=== PATIENT | male | born 1940 | race Caucasian/White ===

== ENCOUNTER 2022-12-31 16:24 | Inpatient (IN) | payer MEDICARE, SELFPAY ==
[2022-12-31] VITALS (7 sets, daily range): BP systolic 120–185; BP diastolic 51–89; PULSE 55–70; RESP 16–20; TEMP 36.3–36.5; O2SAT 97–99; BMI 25.5
--- NOTE | ~2022-12-31 | XR_ITS ---
EXAMINATION: XR tibia fibula RT 2V INDICATION: Right lower limb one and pain TECHNIQUE: Two views of the right tibia and fibula are obtained on three radiographs. COMPARISON: None available FINDINGS: There is distal soft tissue swelling of the leg and ankle. No definite soft tissue gas is i dentified. There is an old healed fracture of the distal fibula. No acute fracture is identified. The re is moderate osteoarthritis of the knee. Calcified atherosclerosis is noted. There is a plantar brittny caneal enthesophyte. IMPRESSION: 1. Soft tissue swelling of the distal leg and ankle without acute osseous abnormality. Reviewed, dictated and finalized at location F. IMPRESSION: 1. Soft tissue swelling of the distal leg and ankle without acute osseous abnor mality.
--- NOTE | ~2022-12-31 | US_ITS ---
EXAMINATION: US biopsy lymph node DATE: 01/02/2023 14:17 INDICATION: Right axillary lymphadenopathy. TECHNIQUE: The procedure including the risks, benefits, and alternatives was discussed with the patie nt. Risks discussed included bleeding and infection. The patient understood the risks and agreed to p roceed. The skin overlying the right axilla was prepped and draped in usual sterile fashion. Anesthe tic was administered with 1% lidocaine subcutaneously. An 18 gauge core biopsy needle was then used to obtain 6 core biopsy specimens under continuous sonographic guidance. The entry site was cleaned a nd dressed. There were no immediate complications. FINDINGS: Ultrasound images demonstrate the needle in a 10 cm mass in right axilla. IMPRESSION: 1. Ultrasound-guided core needle biopsy of a mass in right axilla. Reviewed, dictated and finalized at location A.
--- NOTE | ~2022-12-31 | US_ITS ---
EXAMINATION: US venous doppler UE RT DATE: 01/01/2023 08:38 INDICATION: Right upper extremity edema. TECHNIQUE: Pollard scale images with and without compression and Doppler images of the right upper extre mity veins were obtained. COMPARISON: CT dated 12/31/2022. FINDINGS: The right internal jugular vein, subclavian vein, axillary vein, brachial veins, basilic vein, cephal ic vein, radial vein, and ulnar vein are patent. There are several pathologic-appearing lymph nodes o f the right supraclavicular and axillary locations. IMPRESSION: 1. Patent right upper extremity veins. No evidence of deep venous thrombosis. 2: Pathologic-appearing lymph nodes of the right axilla and supraclavicular locations, suspicious for metastatic disease versus lymphoma. Recommend biopsy. Reviewed, dictated and finalized at location A. IMPRESSION: 1. Patent right upper extremity veins. No evidence of deep venous thrombosis. 2: Pathologic-appearing lymph nodes of the right axilla and supraclavicular loc ations, suspicious for metastatic disease versus lymphoma. Recommend biopsy.
--- NOTE | ~2022-12-31 | CT_ITS ---
EXAMINATION: CT abdomen pelvis w con DATE: 01/05/2023 13:28 INDICATION: Metastatic melanoma. TECHNIQUE: Computed tomography (CT) of the abdomen and pelvis was performed with 100 mL Omnipaque 350 intravenous contrast. Automated exposure control and iterative reconstruction technique were employe d. The dose-length product was 879.51 mGy-cm. COMPARISON: Chest CT 12/31/2022 FINDINGS: The visualized portions of the lung bases demonstrate small right and moderate-sized left p leural effusions. There is mild atelectasis bilaterally. There is mild chronic interstitial lung dise ase on the right. Cardiomegaly is noted. There are coronary artery calcifications. There are changes of aortic valve replacement. No pericardial effusion. There are cysts in the liver measuring up to 10 mm. The gallbladder, spleen, pancreas, and adrenal glands are normal. There is cortical thinning of the kidneys. There is a 4 mm stone in right kidney. There are peripelvic cysts in left kidney. There is calcified atherosclerosis of the aorta and many of the other arteries. 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 The prostate is moderately enlarged. There is a right inguinal hernia c ontaining fat. There is diverticulosis of the colon without evidence of diverticulitis. There are no dilated loops of bowel. The appendix is normal. There are no pathologically enlarged lymph nodes. The re is no free intraperitoneal fluid. Body wall edema is noted. There is edema of the intra-abdominal fat. Partially visualized is an 11.0 cm mass in right axilla. There are multiple healing left rib fra ctures with callus formation. There are healing fractures of the left L1, L2, and L3 transverse proce sses. There is mild thoracic and lumbar spondylosis. IMPRESSION: 1. Right axillary lymphadenopathy, consistent metastatic disease. 2. Small right and moderate-sized left pleural effusions. 3. 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 Reviewed, dictated and finalized at location A.
--- NOTE | ~2022-12-31 | CT_ITS ---
EXAMINATION: CTA chest PE protocol DATE: 12/31/2022 19:10 INDICATION: Pulmonary edema, right axillary mass TECHNIQUE: Computed tomography angiography (CTA) of the chest was performed with 100 mL Omnipaque-350 intravenous contrast timed to evaluate the pulmonary arteries. Coronal maximum intensity projection 3D-reconstructions were created by the technologist. The dose-length product (DLP) was 475.50 mGy-cm. Automated exposure control and iterative reconstruction technique were employed. COMPARISON: None. FINDINGS: The pulmonary arteries are well-opacified. No pulmonary embolism is identified. Cardiomegal y is noted. There are moderate-sized left and small right pleural effusions. There are minimal airspa ce opacities of the lung bases and bilateral upper lobes. There is no pneumothorax. There are multipl e soft tissue masses of the right axilla. The largest measures 8.9 x 6.1 cm. There is right supraclav icular and posterior cervical lymphadenopathy. There are changes of aortic valve replacement and soni nary artery bypass grafting. There is moderate thoracic spondylosis. There is a 4 mm nonobstructing stone of the right kidney. IMPRESSION: 1. No pulmonary embolus identified. 2. Moderate-sized left and small right pleural effusions. 3. Patchy opacities of the lungs, consistent with atelectasis and pneumonia. 4. Multiple soft tissue masses of the right axilla and right supraclavicular posterior cervical lymph adenopathy, consistent with metastatic disease versus lymphoma. Ultrasound-guided biopsy is recommend ed. Reviewed, dictated and finalized at location F. IMPRESSION: 1. No pulmonary embolus identified. 2. Moderate-sized left and small right pleural effusions. 3. Patchy opacities of the lungs, consistent with atelectasis and pneumonia. 4. Multiple soft tissue masses of the right axilla and right supraclavicular po sterior cervical lymphadenopathy, consistent with metastatic disease versus lym phoma. Ultrasound-guided biopsy is recommended.
--- NOTE | ~2022-12-31 | CT_ITS ---
EXAMINATION: CT brain wo con DATE: 01/05/2023 13:28 INDICATION: Metastatic melanoma of the right axilla TECHNIQUE: Computed tomography (CT) of the head was performed without intravenous contrast. The dose- length product was 605.33 mGy-cm. Automated exposure control and iterative reconstruction technique w ere employed. COMPARISON: No prior studies for comparison. FINDINGS: There is a chronic left lacunar infarction of the left caudate and lentiform nuclei. Genera lized atrophy. There are scattered mild periventricular and subcortical white matter changes, most li shad related to small vessel ischemic disease (microangiopathy). No ventriculomegaly or midline shift . There is intracranial atherosclerosis. Basilar cisterns are patent. Small left mastoid effusion. Pa ranasal sinuses are pneumatized. No depressed skull fractures. IMPRESSION: 1. No acute intracranial abnormality. 2: Chronic left lacunar infarction. Reviewed, dictated and finalized at location L.
--- NOTE | ~2022-12-31 | US_ITS ---
EXAMINATION:US venous doppler LE BI INDICATION:Bilateral lower extremity edema. TECHNIQUE: Multiple grayscale, color flow and Doppler images of the right and left lower extremity de ep venous systems were obtained and reviewed. COMPARISON:No prior studies for comparison. FINDINGS: The common femoral, superficial femoral and popliteal veins demonstrate normal respiratory variation, augmentation and compressibility. Color flow is also seen within the posterior tibial, pe roneal, greater saphenous and profunda veins. IMPRESSION: 1: No lower extremity deep venous thrombosis. Reviewed, dictated and finalized at location A.
--- NOTE | ~2022-12-31 | XR_ITS ---
EXAMINATION: XR chest 2V DATE: 12/31/2022 17:41 INDICATION: Congestive heart failure, right axillary mass TECHNIQUE: AP and lateral views of the chest are obtained. COMPARISON: None available FINDINGS: Cardiomegaly is noted. There is a mild diffuse interstitial pattern. There is a small left pleural effusion. There are minimal airspace opacities of the lung bases, left greater than right. Me ginger sternotomy wires and mediastinal surgical clips are seen, consistent with cardiac valve replacem ent and likely prior coronary artery bypass grafting. There is moderate thoracic spondylosis. There a ppears to be fullness in the right axillary region corresponding with the provided clinical history. IMPRESSION: 1. Cardiomegaly with mild pulmonary edema. 2. Small left pleural effusion. 3. Bibasilar airspace opacities, consistent with atelectasis versus pneumonia. 4. Right axillary fullness, nonspecific but consistent with clinical examination. Reviewed, dictated and finalized at location F. IMPRESSION: 1. Cardiomegaly with mild pulmonary edema. 2. Small left pleural effusion. 3. Bibasilar airspace opacities, consistent with atelectasis versus pneumonia. 4. Right axillary fullness, nonspecific but consistent with clinical examinatio rahel
--- NOTE | 2022-12-31 16:50 | ECG_ITS ---
Measurements Intervals [place] Rate: 51 P: -9 MN: 250 QRS: -52 QRSD: 150 T: 132 QT: 468 QTc: 433 Interpretive Statements SINUS BRADYCARDIA WITH FIRST DEGREE AV BLOCK WITH OCCASIONAL SUPRAVENTRICULAR PREMATURE COMPLEXES MARKED LEFT AXIS DEVIATION [QRS AXIS < -30] INTRAVENTRICULAR CONDUCTION DELAY [130+ ms QRS DURATION] PROMINENT U wAVE PRESENT, CONSIDER HYPOKALEMIA. NO PREVIOUS ECG AVAILABLE FOR COMPARISON Electronically Signed On 01-01-2023 8:33:27 CDT by Marion Solorio M.D.
--- NOTE | 2022-12-31 16:59 | ED.EXTPRO ---
HPI - Extremity Problem General Chief complaint: Extremity Problem,Nontraumatic <JONATHAN Yee Last Filed: 01/01/23 02:57> Stated complaint: right arm swelling x4 wks <JONATHAN Yee Last Filed: 01/01/23 02:57> Time Seen by Provider: 12/31/22 16:55 <JONATHAN Yee Last Filed: 01/01/23 02:57> Source: patient <JONATHAN Yee Last Filed: 01/01/23 02:57> Mode of arrival: ambulatory <JONATHAN Yee Last Filed: 01/01/23 02:57> Limitations: no limitations and other (poor historian) <JONATHAN Yee Last Filed: 01/01/23 02:57> History of Present Illness HPI Narrative: Patient is an 82 y/o male who presents to the ED with c/o right upper extremity swelling. Patient is somewhat a poor historian. Patient reports having swelling to his right upper extremity and lower legs for the last 4 to 5 weeks. He states the swelling is improved in the morning and worsens throughout the day. He does have history of CHF. He is not sure if he is on any diuretic therapy. Per records, he takes Lasix 40mg daily. He denies any pain associated with the swelling. He does have a wound to his right lower leg which he states has been there for the last couple of days, unsure how it occurred. He also reports having a mass to his right lateral chest/axillary region which she noticed about 4 weeks ago. He states he has not tried to contact his doctor for this. He reports unintentional weight loss of 10 pounds in the last 2 weeks, decreased appetite, occasional dyspnea with exertion. He denies any chest pain, fevers, cough or cold symptoms, abdominal pain, nausea, vomiting. Denies known history of blood clots. He is not sure if he is on blood thinners. <JONATHAN Yee Last Filed: 01/01/23 02:57> Related Data Home medications: Home Medications Medication Instructions Recorded Confirmed amlodipine 10 mg tablet 10 mg PO DAILY 12/31/22 12/31/22 furosemide 40 mg tablet 40 mg PO DAILY 12/31/22 12/31/22 levothyroxine 175 mcg tablet 175 mcg PO DAILY 12/31/22 12/31/22 <Danielle Samayoa PA-C - Last Filed: 01/01/23 02:57> Allergies/Adverse reactions: Allergies Allergy/AdvReac Type Severity Reaction Status Date / Time No Known Allergies Allergy Verified 12/31/22 16:26 <Danielle Samayoa PA-C - Last Filed: 01/01/23 02:57> Review of Systems Review of Systems: CONSTITUTIONAL: See HPI. ENT: Denies rhinorrhea, congestion, sore throat. CARDIOVASCULAR: See HPI. RESPIRATORY: See HPI. GASTROINTESTINAL: Denies abdominal pain, nausea, vomiting. GENITOURINARY: Denies dysuria or hematuria. SKIN: Denies rash or itching. MUSCULOSKELETAL: Denies back pain, joint pain, or myalgia. NEUROLOGIC: Denies headache, numbness, or weakness. <Danielle Samayoa PA-C - Last Filed: 01/01/23 02:57> All systems reviewed & are unremarkable except as noted in HPI and below <Danielle Samayoa PA-C - Last Filed: 01/01/23 02:57> [facility] Past Medical History Medical History: Medical History (Updated 01/01/23 @ 02:57 by Danielle Samayoa PA-C) CHF (congestive heart failure) Essential hypertension Hypothyroidism <Danielle Samayoa PA-C - Last Filed: 01/01/23 02:57> Surgical History Surgical History: Surgical History (Updated 01/01/23 @ 05:07 by Shabnam Lord DO) History of radical excision of skin lesion (~2021) Right upper back Hx of CABG (~2011) Status post open reduction with internal fixation of fracture Left ankle surgery <Danielle Samayoa PA-C - Last Filed: 01/01/23 02:57> Family History Family History: Family History Father Heart disease Mother Myocardial infarction <Danielle Samayoa PA-C - Last Filed: 01/01/23 02:57> Social History Social History: Social History (Updated 01/01/23 @ 05:10 by Shabnam North
[2022-12-31 17:12] LABS: Basophils Percent Auto 0.3 % (0.2-1.2); Eosinophils Percent Auto 0.3 % (0-4.4); Hematocrit 42.8 % (42.0-52.0); Hemoglobin 14.3 g/dL (14.0-18.0); Immature Granulocyte Absolute 0.06 K/mm3 (0.00-0.031); Immature Granulocyte Percent A 0.6 % (0-0.5); Lymphocytes Absolute Auto 1.09 K/mm3 (0.9-3.2); Mean Corpuscular HGB Conc 33.4 g/dl (32-36); Mean Corpuscular Hemoglobin 30.6 pg (26-34); Mean Corpuscular Volume 91.6 fl (80-100); Mean Platelet Volume 10.4 fl (7.4-10.4); Monocytes Absolute Auto 0.8 K/mm3 (0.1-0.6); Monocytes Percent Auto 8.2 % (2.6-8.5); Neutrophils Absolute Auto 7.9 K/mm3 (1.3-6.7); Neutrophils Percent Auto 79.6 % (45.5-73.1); Platelet Count Result 187 k/mm3 (150-375); Red Blood Count 4.67 M/mm3 (4.6-6.20); Red Cell Distribution Width 15.2 % (11.5-14.5)
[2022-12-31 17:27] LABS: Prothrombin Time 13.6 Seconds (11.1-14.7)
[2022-12-31 17:28] LABS: Partial Thromboplastin Time 25.8 SECONDS (22.3-36.8)
[2022-12-31 17:36] LABS: NT Pro B Type Natriuretic Pept 23800 pg/mL (19.9-100)
[2022-12-31 17:49] LABS: Alanine Aminotransferase 15 U/L (6-50); Albumin Level 3.6 g/dL (3.5-5.1); Alkaline Phosphatase 83 U/L (38-126); Anion Gap 6 mmol/L (8-16); Aspartate Amino Transferase 26 U/L (17-59); Bilirubin,Total 0.8 mg/dL (0.2-1.3); Blood Urea Nitrogen 23 mg/dL (9-20); Calcium 7.9 mg/dL (8.4-10.2); Carbon Dioxide 30 mmol/L (22-30); Chloride 100 mmol/L (98-107); Estimated Glomerular Filt Rate 39; Glucose 108 mg/dL (65-110); Lipase 77 U/L (23-300); Potassium 2.6 mmol/L (3.4-5.0); Sodium 136 mmol/L (137-145); Troponin I 0.079 ng/mL (0.000-0.034)
[2022-12-31 18:04] LABS: D Dimer 2.71 ug/mL (<0.48)
[2022-12-31] MEDS: POTASSIUM CHLORIDE 20 MEQ ER TABLET 40 MEQ PO (18:42)
[2022-12-31] MEDS: POTASSIUM CHLORIDE INJ 40 MEQ in SODIUM CHLORIDE 0.9% IV 500 ML 130 MEQ IVPB (18:42)
[2022-12-31] MEDS: FUROSEMIDE INJ 40 MG/4 ML VIAL IV PUSH (18:49)
[2022-12-31 19:38] LABS: Magnesium 1.9 mg/dL (1.6-2.3)
--- NOTE | 2022-12-31 21:12 | PM.IMHP ---
H&P: HPI History of Present Illness Date/Time: 12/31/22 21:12 Chief Complaint: Right arm swelling Narrative: 82-year-old male with past medical history of CHF, hypothyroidism and essential hypertension who presented to the ER via private vehicle from home due to right upper extremity swelling. The patient who receives all of his medical care at [facility] in [facility] in [place] was brought by family to our facility for evaluation of a mass under the right arm and associated right arm swelling for about a month. The patient was only a fair to poor historian provides all the history as there is no prior medical records available for my review. The patient's family had already left before the patient was transferred out of the ER. The patient states that he he has noticed right upper extremity swelling for 3-4 weeks. There is no associated pain. He is able to use extremity without difficulty. However he has noticed some nontender swelling and had growth under his arm that is been there for at least a month if not a little bit more. He is not went to his primary care physician for evaluation of this. The symptoms have been accompanied by a 6-10 lb weight loss over the last 2 months. He has had significant decrease in appetite and states that food just does not taste good. Since he has not been eating as much she has had decreased bowel movements but denies sensation of constipation, abdominal pain, bloating, hematochezia or melena. Patient initially denied any known history of cancers or malignancies but on exam is noted to have a large scar across his mid back and right shoulder region. At the time my evaluation E stated that he had a melanoma resected last year at [facility]. He denied any associated pain with movement of his arm are under his arm. He does have some occasional shortness of breath with exertion but is unchanged from baseline. He has lower extremity swelling which she is adamant has been stable for at least 10 years. He blames his lower extremity swelling on his prior heart history. The patient does have a midline sternal scar and with direct questioning does state that he had bypass surgery but he does not know how many vessels were bypassed. He thinks that the surgery was performed over 10 years ago but again he is confused as to the year currently. He is unable to tell me if he follows with a vocational rehabilitation supervisor he is adamant at this time that they do not call his son to disturbance son this late the evening. He states that his son is too tired. The patient is oriented to person and the fact that he is in a hospital is conversational. But he tells me that he is in [facility], that the year is 2002. He does know that the month is January. He tells me that Angel Leahy is the president. He reports that he ambulates with a cane and has been weaker recently. He does have occasional sensation of incomplete bladder emptying. A postvoid residual after he had voided on arrival to IMU did show retention of 345 mL. However nursing staff was able to get the patient to stand up at bedside and void again at which time he voided 500 mL. The patient does have an elevated creatinine on presentation but he does not know if he has a history of chronic kidney disease. He denies any dysuria or hematuria. His urine was pale yellow and clear in the urinal at bedside. The patient is continent of urine. He denies any orthopnea, chest pain or palpitations. Review of Systems Review of Systems: 12 systems were reviewed with pertinent positives and negatives per HPI. Except as documented in the HPI, all other systems were reviewed and are negative. [facility] Past Medical History Medical History (Updated 01/01/23 @ 02:57 by Danielle Samayoa PA-C) CHF (congestive heart failure) Essential hypertension Hypothyroidism Surgical History Surgical History (Updated 01/01/23 @ 05:07 by Shabnam Lord
[2022-12-31 22:03] LABS: Appearance Urine Clear (Clear); Bacteria Urine None Seen /hpf; Bilirubin Urine Negative (Negative); Color Urine Yellow (Yellow); Glucose Urine UA Negative (Negative); Ketones Urine Negative (Negative); Leukocyte Esterase Ur Negative LEU/UL (Negative); Nitrate Urine Negative (Negative); Non Pathogenic Casts 0-2; Protein Urine 3+ mg/dL (Negative); Specific Grav Ur 1.015 (1.001-1.035); Squamous Epithelial Cell Urine None seen /hpf (Few); Urobilinogen Urine 0.2 mg/dL (<2.0); WBC Urine 0-5 /hpf
[2022-12-31 22:04] LABS: Add Urine Microscopic? YES
[2022-12-31 22:18] LABS: Creatinine Urine 21.8 mg/dL; Sodium Urine Random 104 meq/L
--- NOTE | 2022-12-31 22:26 | ADMGEN ---
This patient, Kerwin Griffin, was admitted to IMU Room 201-01. Patient/family oriented to hospital policies and general routines including ID bracelet, bed and alarms, visiting hours, pain management, procedures, bathroom and other care routines, personal items, smoking policy, room service/diet, and visiting hours. Information on how to activate the Rapid Response Team has been discussed. Patient/Family are encouraged to report perceived risks to care and to ask questions if they do not understand what they are told or what they should do.
[2022-12-31 23:35] LABS: Potassium 2.9 mmol/L (3.4-5.0)
[2023-01-01] VITALS (15 sets, daily range): BP systolic 147–192; BP diastolic 57–70; PULSE 49–71; RESP 20–24; TEMP 36.3–36.6; O2SAT 98–100
--- NOTE | 2023-01-01 00:27 | ECG_ITS ---
Measurements Intervals [place] Rate: 53 P: MS: 0 QRS: -56 QRSD: 143 T: 124 QT: 463 QTc: 435 Interpretive Statements SINUS BRADYCARDIA WITH A FIRST-DEGREE AV BLOCK MARKED LEFT AXIS DEVIATION [QRS AXIS < -30] LEFT BUNDLE BRANCH BLOCK [120+ ms QRS DURATION, 80+ ms Q/S IN V1/V2, 85+ ms R IN I/aVL/V5/V6] PROMINENT U WAVE PRESENT, CONSIDER HYPOKALEMIA. WARNING: DATA QUALITY MAY AFFECT INTERPRETATION COMPARED TO ECG 12/31/2022 16:58:53 NO SIGNIFICANT CHANGE Electronically Signed On 01-01-2023 8:37:50 CDT by Marion Solorio M.D.
[2023-01-01 00:34] LABS: Troponin I 0.095 ng/mL (0.000-0.034)
[2023-01-01 01:30] LABS: Free T4 Free Thyroxine Reflex 1.89 ng/dL (0.78-2.19)
[2023-01-01 02:19] LABS: Total Triiodothyronine (T3) 0.74 NG/ML (0.97-1.69)
[2023-01-01 02:47] LABS: Basophils Percent Auto 0.2 % (0.2-1.2); Eosinophils Percent Auto 0.5 % (0-4.4); Hematocrit 42.3 % (42.0-52.0); Hemoglobin 13.8 g/dL (14.0-18.0); Immature Granulocyte Absolute 0.08 K/mm3 (0.00-0.031); Immature Granulocyte Percent A 0.9 % (0-0.5); Lymphocytes Absolute Auto 1.13 K/mm3 (0.9-3.2); Lymphocytes Percent Auto 13.1 % (18.3-44.2); Mean Corpuscular HGB Conc 32.6 g/dl (32-36); Monocytes Absolute Auto 0.7 K/mm3 (0.1-0.6); Monocytes Percent Auto 7.8 % (2.6-8.5); Neutrophils Absolute Auto 6.7 K/mm3 (1.3-6.7); Neutrophils Percent Auto 77.5 % (45.5-73.1); Platelet Count Result 177 k/mm3 (150-375); Red Cell Distribution Width 15.1 % (11.5-14.5); White Blood Count 8.6 K/mm3 (4.5-10.0)
[2023-01-01 03:03] LABS: Anion Gap 3 mmol/L (8-16); Blood Urea Nitrogen 21 mg/dL (9-20); Calcium 7.8 mg/dL (8.4-10.2); Carbon Dioxide 31 mmol/L (22-30); Chloride 103 mmol/L (98-107); Estimated CRCL calculation 38 ml/min; Estimated Glomerular Filt Rate 42; Glucose 91 mg/dL (65-110); Magnesium 1.9 mg/dL (1.6-2.3); Sodium 137 mmol/L (137-145)
[2023-01-01 03:34] LABS: Troponin I 0.091 ng/mL (0.000-0.034)
[2023-01-01] MEDS: LEVOTHYROXINE SODIUM 100 MCG TABLET PO (05:56)
[2023-01-01] MEDS: POTASSIUM CHLORIDE 20 MEQ PACKET (FOR LIQUID) 40 MEQ PO (05:56)
[2023-01-01] MEDS: LEVOTHYROXINE SODIUM 75 MCG TABLET PO (05:57)
[2023-01-01] MEDS: FUROSEMIDE INJ 40 MG/4 ML VIAL IV PUSH ×2 (08:47→20:56)
[2023-01-01] MEDS: amLODIPine BESYLATE 5 MG TABLET 10 MG PO (08:47)
--- NOTE | 2023-01-01 13:05 | WPDPN ---
Progress Note: A&P Assessment and Plan (1) Mass of right axilla: Code(s): R22.31 - Localized swelling, mass and lump, right upper limb Status: Acute Assessment and Plan: I suspect the patient has probable recurrence of melanoma with metastatic disease given his history of prior melanoma excision from the right upper back reportedly performed last year. Will request general surgery consultation for lymph node resection for complete histologic evaluation verses excision of chest wall mass for pathologic diagnosis. Lymphoma is less likely. As the patient is not the best historian I will request records from [facility] regarding patient's past medical history. 01/01/2023 interval history: Patient is 82-year-old male presented with complaint right axilla mass for over a month now patient states is growing slowly, denies any pain or tenderness and has a full range of motion and right arm, just discomfort, patient remains clinically stable, will consult Oncology and patient may need biopsy of the mass, also patient has shortness of breath, most likely congestive heart failure etiology uncertain is patient normally goes [facility] we have requested records, meanwhile, will gently diurese the patient and monitor, patient's son is present in the room give updates. Will have a PT OT evaluate the patient. (2) Supraclavicular lymphadenopathy: Code(s): R59.0 - Localized enlarged lymph nodes Status: Acute Assessment and Plan: See above (3) Elevated troponin: Code(s): R77.8 - Other specified abnormalities of plasma proteins Status: Acute Assessment and Plan: Patient is not having any active chest pain. I suspect this is likely due to chronic troponin leak given the patient's history of heart failure and prior CABG. The patient also has noted cardiac murmur on exam. The patient likely has chronic underlying chronic kidney disease but this cannot be confirmed if his renal failure is acute or chronic. Will trend troponins and monitor in IMU. Will check echocardiogram to further evaluate cardiac structure and function. (4) Acute hypokalemia: Code(s): E87.6 - Hypokalemia Status: Acute Assessment and Plan: Patient received a total of 80 mEq potassium supplements in the ER. Will repeat potassium level around midnight and in a.m.. Will monitor closely given the patient is also receiving active diuresis. Will trend magnesium and check a phosphorus as well. (5) Renal failure: Qualifiers: Renal failure chronicity: unspecified chronicity Qualified Code(s): N19 - Unspecified kidney failure Code(s): N19 - Unspecified kidney failure Status: Acute Assessment and Plan: The patient has an elevated creatinine. I would not be surprised if the patient does not have some chronic underlying chronic kidney disease. Will check urine electrolytes. Will check postvoid residual to evaluate for possible urinary retention and postrenal causes for renal insufficiency. Will monitor creatinine and urine output closely. (6) Pleural effusion: Code(s): J90 - Pleural effusion, not elsewhere classified Status: Acute Assessment and Plan: Likely due to CHF versus malignancy. Will start with IV diuresis. Monitor strict I&O's and daily weights. Will check echocardiogram to further evaluate cardiac structure and function. If no improvement in pleural effusion may consider diagnostic and therapeutic tap. However the patient is currently having no tachypnea or hypoxia. So no need for emergent thoracentesis. 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
[2023-01-01 15:58] LABS: Anion Gap 2 mmol/L (8-16); Blood Urea Nitrogen 21 mg/dL (9-20); Calcium 7.7 mg/dL (8.4-10.2); Carbon Dioxide 33 mmol/L (22-30); Chloride 101 mmol/L (98-107); Estimated CRCL calculation 35 ml/min; Estimated Glomerular Filt Rate 39; Glucose 94 mg/dL (65-110); Magnesium 1.7 mg/dL (1.6-2.3); Potassium 3.5 mmol/L (3.4-5.0); Sodium 136 mmol/L (137-145)
--- NOTE | 2023-01-01 21:55 | ECG_ITS ---
Measurements Intervals [place] Rate: 54 P: -21 MS: 262 QRS: -52 QRSD: 145 T: 129 QT: 477 QTc: 453 Interpretive Statements SINUS BRADYCARDIA WITH FIRST DEGREE AV BLOCK WITH OCCASIONAL VENTRICULAR PREMATURE COMPLEXES WITH OCCASIONAL SUPRAVENTRICULAR COMPLEXES MARKED LEFT AXIS DEVIATION [QRS AXIS < -30] LEFT BUNDLE BRANCH BLOCK [120+ ms QRS DURATION, 80+ ms Q/S IN V1/V2, 85+ ms R IN I/aVL/V5/V6] ABNORMAL ECG COMPARED TO ECG 01/01/2023 00:38:23 PVC IS DEMONSTRATED Electronically Signed On 01-02-2023 11:23:49 CDT by Mert Connolly M.D.
[2023-01-01] MEDS: POTASSIUM CHLORIDE 20 MEQ ER TABLET 40 MEQ PO (23:28)
[2023-01-01] MEDS: MAGNESIUM SULF 1 GM/D5W 100 ML 1 GM/100 ML BAG IVPB (23:29)
[2023-01-02] VITALS (12 sets, daily range): BP systolic 150–179; BP diastolic 43–70; PULSE 50–78; RESP 16–20; TEMP 36.1–36.7; O2SAT 96–99; BMI 25.5
[2023-01-02] MEDS: LEVOTHYROXINE SODIUM 75 MCG TABLET PO (06:07)
[2023-01-02] MEDS: LEVOTHYROXINE SODIUM 100 MCG TABLET PO (06:07)
--- NOTE | 2023-01-02 08:38 | PM.CNCAR ---
Assessment and Plan Assessment and plan (1) Atrial premature contractions: Code(s): I49.1 - Atrial premature depolarization Status: Acute (2) Left bundle branch block: Code(s): I44.7 - Left bundle-branch block, unspecified Status: Acute Plan This is an 82-year-old man who reports a history of valvular heart disease and previous valvular surgery about a decade ago. We have none of those records available to us at the time of this dictation. He receives none of his cardiac care at this institution. I am seeing him because of arrhythmias. His rhythm is sinus with first-degree AV block with left bundle branch block and short pauses that are because of nonconducted PACs. This is not an arrhythmia that requires further treatment or tension. I not sure why he is been placed on telemetry when his admitting complaint is a large right axillary mass. Presumably a surgical consult will be obtained for this reason and no further cardiac assessment is necessary. He describes active follow-up with a naval aircrewman up in [place] for whenever his valvular history is. Mert Connolly MD [facility] History of Present Illness History of Present Illness Consult date/time: 01/02/23 08:38 Reason For Visit: CHF Exacerbation/Elev Trop/Hypokalemia/Renal Insuf Narrative: This is an 82-year-old man I am seeing at the request of the hospitalist because of arrhythmia. The patient is unknown to me prior to this encounter and he is generally unknown to physicians here at [facility] his medical care is typically delivered at [facility] [place] in [place]. The patient states that he came to the hospital yesterday at the request of his family to have a right axillary mass evaluated. He has had a slowly enlarging axillary mass for several months it apparently has become quite large and they brought him to this hospital for evaluation. It is unclear as to why they chose to come here since none of his other medical care is delivered here. The notes in the chart report that the patient is a poor historian. He seems to be providing a reasonable history of this morning. He denies any cardiac symptomatology such as chest pain shortness of breath palpitations orthopnea PND or edema. He does not recall ever experiencing a syncopal episode. His electrocardiogram shows a sinus rhythm with first-degree AV block and some nonconducted PACs. His telemetry shows the same thing. It is unclear to me as why he was placed on telemetry when is admitting complaint tested with a right axillary mass. In any event for this reason I have been asked to see him in consultation. He has a history of heart disease and follows with a naval aircrewman in [place] who also sees him at [facility] [place]. The patient is says statements today is that he had a cardiac valve operation done about 10 or 11 years ago. He does not know any more about it than that. His chest x-ray shows changes of his sternotomy with sternal wires but I do not see anything that looks like a prosthetic valve. The patient says he follows with his naval aircrewman regularly and from that respect has been doing well. Review of Systems Constitutional: Constitutional: Reports no additional constitutional complaints Eyes: Eyes: Reports no additional eye complaints ENT: Reports system reviewed and no additional complaints, except as documented Cardiovascular: Cardiovascular: Reports no additional cardiovascular complaints Respiratory: Respiratory: Reports no additional respiratory complaints Gastrointestinal: Gastrointestinal: Reports no additional gastrointestinal complaints Musculoskeletal: Comments: Axillary mass as described Integumentary/Breasts: Skin/Breast: Reports system reviewed and no additional complaints, except as docu Neurologic: Reports system reviewed and no additional complaints, except as documented Endocrine: Endocrine: Reports no additional endocrine c
[2023-01-02 08:45] LABS: Hematocrit 46.2 % (42.0-52.0); Mean Corpuscular HGB Conc 32.5 g/dl (32-36); Mean Corpuscular Hemoglobin 30.1 pg (26-34); Mean Corpuscular Volume 92.8 fl (80-100); Mean Platelet Volume 10.2 fl (7.4-10.4); Platelet Count Result 186 k/mm3 (150-375); Red Blood Count 4.98 M/mm3 (4.6-6.20); Red Cell Distribution Width 15.3 % (11.5-14.5); White Blood Count 9.3 K/mm3 (4.5-10.0)
[2023-01-02] MEDS: FUROSEMIDE INJ 40 MG/4 ML VIAL IV PUSH ×2 (08:52→19:59)
[2023-01-02] MEDS: amLODIPine BESYLATE 5 MG TABLET 10 MG PO (08:53)
[2023-01-02 09:09] LABS: Anion Gap 3 mmol/L (8-16); Blood Urea Nitrogen 20 mg/dL (9-20); Calcium 7.7 mg/dL (8.4-10.2); Carbon Dioxide 32 mmol/L (22-30); Chloride 100 mmol/L (98-107); Estimated CRCL calculation 38 ml/min; Estimated Glomerular Filt Rate 42; Glucose 139 mg/dL (65-110); Magnesium 1.9 mg/dL (1.6-2.3); Potassium 3.5 mmol/L (3.4-5.0); Sodium 135 mmol/L (137-145)
--- NOTE | 2023-01-02 11:35 | PCPTNOTE ---
On 01/02/23, the student, [Celeste Nguyen], provided care and completed [facility] documentation on this patient. I have reviewed the student's documentation and agree with the findings.
--- NOTE | 2023-01-02 13:13 | WPDPN ---
Progress Note: A&P Assessment and Plan (1) Mass of right axilla: Code(s): R22.31 - Localized swelling, mass and lump, right upper limb Status: Acute Assessment and Plan: I suspect the patient has probable recurrence of melanoma with metastatic disease given his history of prior melanoma excision from the right upper back reportedly performed last year. Will request general surgery consultation for lymph node resection for complete histologic evaluation verses excision of chest wall mass for pathologic diagnosis. Lymphoma is less likely. As the patient is not the best historian I will request records from [facility] regarding patient's past medical history. 01/02/2023 interval history: Patient is 82-year-old male presented with complaint right axilla mass for over a month now patient states is growing slowly, denies any pain or tenderness and has a full range of motion and right arm, just discomfort, patient remains clinically stable, have consulted Oncology and general surgery, patient may need excisional biopsy of the mass, also patient has shortness of breath, most likely congestive heart failure etiology uncertain is patient normally goes [facility] we have requested records, meanwhile, will gently diurese the patient and monitor, on 01/01 patient's son was present in the room gave updates. Will have a PT OT evaluate the patient. (2) Supraclavicular lymphadenopathy: Code(s): R59.0 - Localized enlarged lymph nodes Status: Acute Assessment and Plan: See above (3) Elevated troponin: Code(s): R77.8 - Other specified abnormalities of plasma proteins Status: Acute Assessment and Plan: Patient is not having any active chest pain. I suspect this is likely due to chronic troponin leak given the patient's history of heart failure and prior CABG. The patient also has noted cardiac murmur on exam. The patient likely has chronic underlying chronic kidney disease but this cannot be confirmed if his renal failure is acute or chronic. Will trend troponins and monitor in IMU. Will check echocardiogram to further evaluate cardiac structure and function. (4) Acute hypokalemia: Code(s): E87.6 - Hypokalemia Status: Acute Assessment and Plan: Patient received a total of 80 mEq potassium supplements in the ER. Will repeat potassium level around midnight and in a.m.. Will monitor closely given the patient is also receiving active diuresis. Will trend magnesium and check a phosphorus as well. (5) Renal failure: Qualifiers: Renal failure chronicity: unspecified chronicity Qualified Code(s): N19 - Unspecified kidney failure Code(s): N19 - Unspecified kidney failure Status: Acute Assessment and Plan: The patient has an elevated creatinine. I would not be surprised if the patient does not have some chronic underlying chronic kidney disease. Will check urine electrolytes. Will check postvoid residual to evaluate for possible urinary retention and postrenal causes for renal insufficiency. Will monitor creatinine and urine output closely. (6) Pleural effusion: Code(s): J90 - Pleural effusion, not elsewhere classified Status: Acute Assessment and Plan: Likely due to CHF versus malignancy. Will start with IV diuresis. Monitor strict I&O's and daily weights. Will check echocardiogram to further evaluate cardiac structure and function. If no improvement in pleural effusion may consider diagnostic and therapeutic tap. However the patient is currently having no tachypnea or hypoxia. So no need for emergent thoracentesis. (7) CHF (congestive heart failure): Qualifiers: Heart failure type: unspecified Heart failure chronicity: acute Qualified Code(s): I50.9 - Heart failure, unspecified Code(s): I50.9 - Heart failure, unspecified Status: Acute Assessment and Plan:
[2023-01-02] MEDS: POTASSIUM CHLORIDE 20 MEQ ER TABLET 40 MEQ PO (17:01)
--- NOTE | 2023-01-02 17:41 | PDONCCN ---
HPI - Date of Consult Date/Time: 01/02/23 17:41 Requesting Physician: Shabnam Lord DO Primary Care Provider: Jose Frey, - Consult Narrative Reason for consult: Metastatic melanoma Narrative: Kerwin Griffin is a 82 year old male with history of melanoma resected from the upper back about 2 years ago along with history of CTA chest, hypothyroidism and hypertension came into the hospital with right upper extremity swelling. Patient is a poor historian. He informed me that he notice lump in the right axilla about 2 months ago. He has lost about 10 lb weight in last couple of months duration. He denies any hot flashes and night sweats. CTA chest showed no evidence of PE. There was moderate left and small right pleural effusion and there was finding consistent with pneumonia along with multiple soft tissue masses in the right axilla and right supraclavicular and posterior cervical lymphadenopathy consistent with metastatic disease versus lymphoma. Patient had ultrasound-guided right axillary lymph node biopsy done yesterday and pathology is pending. Review of Systems - Review of Systems All systems reviewed & are unremarkable except as noted in HPI and bel - Neurologic Reports system reviewed and no additional complaints, except as documented [facility] Medical History: Medical History (Last Reviewed 01/01/23 @ 02:47 by Danielle Samayoa PA-C) CHF (congestive heart failure) Essential hypertension Hypothyroidism Surgical History: Surgical History (Last Updated 01/01/23 @ 05:07 by Shabnam Lord DO) History of radical excision of skin lesion Onset Date: ~2021 Right upper back Hx of CABG Onset Date: ~2011 Status post open reduction with internal fixation of fracture Left ankle surgery Family History: Family History (Last Reviewed 01/01/23 @ 05:07 by Shabnam Lord DO) Father Heart disease Mother Myocardial infarction - Social History Social History: Social History (Last Updated 01/01/23 @ 05:10 by Shabnam Lord DO) Alcohol Use: Alcohol intake: former Substance Use: Substance use type: does not use Others: Spiritual care concerns: No Smoking Status: Smoking status: Former smoker Smoking Pack-years: Smoking packs per day: 1 Smoking cigarettes per day: 20.0 Years smoked: 54 Smoking pack-years: 54.00 Social Determinants of Health: Has the Lack of Transportation Kept You From Medical Appointments or From Getting Medications?: No Within the Past 12 Months, Were You Worried Whether Your Food Would Run Out Before You Got Money to Buy More?: Never True What is Your Housing Situation Today?: I Have Housing Are You Worried That in the Next 2 Months, You May Not Have Your Own Housing to Live In?: No Do You Have Trouble Paying Your Heating Or Electricity Bill?: No Do You Have Trouble Paying For Medicines?: No Are You Currently Unemployed and Looking for Work?: No Highest Level of Education Completed: Decline to Answer Do You Have Trouble With Childcare or the Care of a Family Member?: No Exam - Vital Signs Vital Signs - 24 hr 01/01/23 18:00 01/01/23 19:51 01/01/23 20:00 Temperature 36.4 C Pulse Rate 58 L 55 L 66 Respiratory Rate 20 Blood Pressure 147/58 H Pulse Oximetry 99 Oxygen Delivery 01/01/23 23:29 01/01/23 22:00 01/02/23 00:00 Temperature 36.4 C L Pulse Rate 59 L 60 50 L Respiratory Rate 20 Blood Pressure 160/57 H Pulse Oximetry 98 Oxygen Delivery 01/02/23 02:00 01/02/23 04:00 01/02/23 04:44 Temperature 36.4 C L Pulse Rate 60 63 55 L Respiratory Rate 20 Blood Pressure 151/59 H Pulse Oximetry 99 Oxygen Delivery 01/02/23 06:00 01/02/23 08:00 01/02/23 09:27 Temperature 36.3 C L Pulse Rate 61 64 Respiratory Rate 18 Blood Pressure 179/54 H Pulse Oximetry 97 Oxygen Delivery Room Air 01/02/23 08:00 01/02/23 08:
--- NOTE | 2023-01-02 17:51 | PM.CNGS ---
Assessment and Plan Assessment and plan (1) Mass of right axilla: Code(s): R22.31 - Localized swelling, mass and lump, right upper limb Status: Acute Assessment and Plan: I have reviewed the imaging and along with his history, I feel that it will be safest to proceed initially with ultrasound-guided core needle biopsy of the right axillary mass. This should allow for diagnosis of suspected metastatic melanoma. There is always a possibility that the core needle biopsy will be inconclusive and he might eventually need excisional biopsy. Will continue to follow for these results and discuss any further diagnostic recommendations based on this. Patient has already voiced concerns that he does not want to go through chemotherapy or other aggressive treatment. I discussed with him that Oncology can have further discussions about what his overall prognosis would be. (2) Supraclavicular lymphadenopathy: Code(s): R59.0 - Localized enlarged lymph nodes Status: Acute (3) History of melanoma: Code(s): Z85.820 - Personal history of malignant melanoma of skin Status: Acute History of Present Illness Consult details Consult date: 01/02/23 Reason for consult: other (Lymphadenopathy) Requesting physician: Danielle Samayoa PA-C Narrative: This is an 82-year-old man who I am asked to see for lymphadenopathy. He presented to the emergency department on 12/31/2022 with right upper extremity swelling and generalized weakness. He has noticed a lump in his right armpit that has grown over the past several months. He has not sought any other medical treatment for this prior. He does have a history of melanoma on his back that was excised about 18-24 months ago. He did not require any further treatment after excision. The patient states that at his age he does not want to be aggressive with treatment. He feels that if it is metastatic melanoma then he will just accepted it and not seek out any further treatment. CT was done in the emergency department which showed right axillary and supraclavicular lymphadenopathy. He was admitted for further treatment. Review of Systems Review of Systems: All systems reviewed & are unremarkable except as noted in HPI and below Eyes: Eyes: Denies change in vision ENT: Denies hearing loss, Denies neck pain and Denies sore throat Cardiovascular: Cardiovascular: Denies chest pain and Denies dyspnea Respiratory: Respiratory: Denies cough, Denies dyspnea and Denies wheezing Gastrointestinal: Gastrointestinal: Denies abdominal pain Genitourinary: Genitourinary: Denies hematuria and Denies dysuria Musculoskeletal: Musculoskeletal: Denies arthralgias, Denies joint swelling and Denies neck pain Allergic/Immunologic: Allergic/Immunologic: Denies wheezing [facility] Past Medical History Medical History (Updated 01/02/23 @ 17:58 by Devan Mcmahon DO) CHF (congestive heart failure) Essential hypertension Hypothyroidism Surgical History Surgical History (Updated 01/02/23 @ 17:45 by Bill Vasquez MD) History of radical excision of skin lesion (~2021) Right upper back Hx of CABG (~2011) Status post open reduction with internal fixation of fracture Left ankle surgery Family History Family History Father Heart disease Mother Myocardial infarction Social History Social History (Updated 01/01/23 @ 05:10 by Shabnam Lord DO) Social History: The patient is retired. He has lived alone since his in approximately 2018. He ambulates with a cane. He has 2 sons and 1 daughter. He smoked 1 pack per day for 50+ years but quit smoking approximately 13 years ago. He used to rarely drink alcohol on occasion. He denies any illicit substance use. Code status: The patient states he would not want to be resuscitated. However given the patient is only alert orient times 1-2 I do not feel comfortable c
[2023-01-03] VITALS (7 sets, daily range): BP systolic 117–182; BP diastolic 58–98; PULSE 46–89; RESP 14–20; TEMP 36.1–36.4; O2SAT 96–98
[2023-01-03] MEDS: LEVOTHYROXINE SODIUM 100 MCG TABLET PO (05:28)
[2023-01-03] MEDS: LEVOTHYROXINE SODIUM 75 MCG TABLET PO (05:28)
[2023-01-03 06:34] LABS: Alanine Aminotransferase 11 U/L (6-50); Albumin Level 3.2 g/dL (3.5-5.1); Alkaline Phosphatase 71 U/L (38-126); Anion Gap 5 mmol/L (8-16); Aspartate Amino Transferase 20 U/L (17-59); Bilirubin,Total 0.6 mg/dL (0.2-1.3); Blood Urea Nitrogen 22 mg/dL (9-20); Calcium 7.7 mg/dL (8.4-10.2); Carbon Dioxide 29 mmol/L (22-30); Chloride 100 mmol/L (98-107); Estimated CRCL calculation 38 ml/min; Estimated Glomerular Filt Rate 42; Glucose 95 mg/dL (65-110); Magnesium 1.9 mg/dL (1.6-2.3); Potassium 3.8 mmol/L (3.4-5.0); Sodium 134 mmol/L (137-145)
[2023-01-03 06:38] LABS: Basophils Percent Auto 0.3 % (0.2-1.2); Eosinophils Absolute Auto 0.1 K/mm3 (0-0.3); Eosinophils Percent Auto 0.6 % (0-4.4); Hemoglobin 14.2 g/dL (14.0-18.0); Immature Granulocyte Percent A 1.1 % (0-0.5); Lymphocytes Absolute Auto 1.13 K/mm3 (0.9-3.2); Lymphocytes Percent Auto 12.8 % (18.3-44.2); Mean Corpuscular Hemoglobin 30.5 pg (26-34); Mean Corpuscular Volume 92.3 fl (80-100); Mean Platelet Volume 10.4 fl (7.4-10.4); Monocytes Absolute Auto 0.9 K/mm3 (0.1-0.6); Monocytes Percent Auto 10.1 % (2.6-8.5); Neutrophils Absolute Auto 6.6 K/mm3 (1.3-6.7); Neutrophils Percent Auto 75.1 % (45.5-73.1); Platelet Count Result 163 k/mm3 (150-375); Red Blood Count 4.66 M/mm3 (4.6-6.20); Red Cell Distribution Width 15.2 % (11.5-14.5); White Blood Count 8.8 K/mm3 (4.5-10.0)
[2023-01-03] MEDS: FUROSEMIDE INJ 40 MG/4 ML VIAL IV PUSH ×2 (09:50→20:57)
[2023-01-03] MEDS: POTASSIUM CHLORIDE 20 MEQ ER TABLET 40 MEQ PO ×2 (09:50→17:01)
[2023-01-03] MEDS: amLODIPine BESYLATE 5 MG TABLET 10 MG PO (09:51)
--- NOTE | 2023-01-03 12:49 | WPDPN ---
Progress Note: A&P Assessment and Plan (1) Mass of right axilla: Code(s): R22.31 - Localized swelling, mass and lump, right upper limb Status: Acute Assessment and Plan: I suspect the patient has probable recurrence of melanoma with metastatic disease given his history of prior melanoma excision from the right upper back reportedly performed last year. Will request general surgery consultation for lymph node resection for complete histologic evaluation verses excision of chest wall mass for pathologic diagnosis. Lymphoma is less likely. As the patient is not the best historian I will request records from [facility] regarding patient's past medical history. 01/03/2023 interval history: Patient is 82-year-old male presented with complaint right axilla mass for over a month now patient states is growing slowly, denies any pain or tenderness and has a full range of motion and right arm, just discomfort, patient had a fine needle biopsy of the lumbar, patient remains clinically stable, was seen by oncologist will follow-up on biopsy results and was seen by general surgery, patient may need excisional biopsy of the mass, also patient has shortness of breath, most likely congestive heart failure etiology uncertain is patient normally goes [facility] we have requested records, meanwhile, will gently diurese the patient and monitor, CT scan of the chest also showed concerning for pneumonia patient is being treated ceftriaxone and azithromycin, on 01/01 patient's son was present in the room gave updates. Will have a PT OT evaluate the patient. (2) Supraclavicular lymphadenopathy: Code(s): R59.0 - Localized enlarged lymph nodes Status: Acute Assessment and Plan: See above (3) Elevated troponin: Code(s): R77.8 - Other specified abnormalities of plasma proteins Status: Acute Assessment and Plan: Patient is not having any active chest pain. I suspect this is likely due to chronic troponin leak given the patient's history of heart failure and prior CABG. The patient also has noted cardiac murmur on exam. The patient likely has chronic underlying chronic kidney disease but this cannot be confirmed if his renal failure is acute or chronic. Will trend troponins and monitor in IMU. Will check echocardiogram to further evaluate cardiac structure and function. (4) Acute hypokalemia: Code(s): E87.6 - Hypokalemia Status: Acute Assessment and Plan: Patient received a total of 80 mEq potassium supplements in the ER. Will repeat potassium level around midnight and in a.m.. Will monitor closely given the patient is also receiving active diuresis. Will trend magnesium and check a phosphorus as well. (5) Renal failure: Qualifiers: Renal failure chronicity: unspecified chronicity Qualified Code(s): N19 - Unspecified kidney failure Code(s): N19 - Unspecified kidney failure Status: Acute Assessment and Plan: The patient has an elevated creatinine. I would not be surprised if the patient does not have some chronic underlying chronic kidney disease. Will check urine electrolytes. Will check postvoid residual to evaluate for possible urinary retention and postrenal causes for renal insufficiency. Will monitor creatinine and urine output closely. (6) Pleural effusion: Code(s): J90 - Pleural effusion, not elsewhere classified Status: Acute Assessment and Plan: Likely due to CHF versus malignancy. Will start with IV diuresis. Monitor strict I&O's and daily weights. Will check echocardiogram to further evaluate cardiac structure and function. If no improvement in pleural effusion may consider diagnostic and therapeutic tap. However the patient is currently having no tachypnea or hypoxia. So no need for emergent thoracentesis. (7) CHF (congestive heart failure): Qualifiers: Heart failure
[2023-01-03] MEDS: hydrALAZINE HCL 20 MG/ML VIAL 10 MG IV PUSH (20:57)
[2023-01-04 20:00] VITALS: BP 138/69; PULSE 57; PULSE 68; RESP 16; TEMP 36.2; O2SAT 96
[2023-01-04] MEDS: FUROSEMIDE INJ 40 MG/4 ML VIAL IV PUSH (21:00)
--- NOTE | 2023-01-04 21:16 | PC.NURSE ---
Paper documentation exists on this patient due to [employer] downtime on 01/04/23 from 0030 to 1930 .
[2023-01-05] VITALS (8 sets, daily range): BP systolic 102–157; BP diastolic 54–78; PULSE 50–83; RESP 14–18; TEMP 35.8–36.3; O2SAT 96–98
[2023-01-05 06:01] LABS: Basophils Percent Auto 0.4 % (0.2-1.2); Eosinophils Absolute Auto 0.1 K/mm3 (0-0.3); Eosinophils Percent Auto 0.7 % (0-4.4); Hematocrit 45.4 % (42.0-52.0); Hemoglobin 14.8 g/dL (14.0-18.0); Immature Granulocyte Absolute 0.07 K/mm3 (0.00-0.031); Immature Granulocyte Percent A 0.7 % (0-0.5); Lymphocytes Absolute Auto 1.09 K/mm3 (0.9-3.2); Lymphocytes Percent Auto 11.6 % (18.3-44.2); Mean Corpuscular HGB Conc 32.6 g/dl (32-36); Mean Corpuscular Hemoglobin 30.5 pg (26-34); Mean Corpuscular Volume 93.6 fl (80-100); Monocytes Absolute Auto 0.8 K/mm3 (0.1-0.6); Monocytes Percent Auto 8.7 % (2.6-8.5); Neutrophils Absolute Auto 7.3 K/mm3 (1.3-6.7); Neutrophils Percent Auto 77.9 % (45.5-73.1); Platelet Count Result 155 k/mm3 (150-375); Red Blood Count 4.85 M/mm3 (4.6-6.20); Red Cell Distribution Width 15.1 % (11.5-14.5); White Blood Count 9.4 K/mm3 (4.5-10.0)
[2023-01-05] MEDS: LEVOTHYROXINE SODIUM 100 MCG TABLET PO (06:11)
[2023-01-05] MEDS: LEVOTHYROXINE SODIUM 75 MCG TABLET PO (06:12)
[2023-01-05 06:17] LABS: Alanine Aminotransferase 11 U/L (6-50); Albumin Level 3.3 g/dL (3.5-5.1); Alkaline Phosphatase 67 U/L (38-126); Anion Gap 1 mmol/L (8-16); Aspartate Amino Transferase 23 U/L (17-59); Bilirubin,Total 0.6 mg/dL (0.2-1.3); Blood Urea Nitrogen 28 mg/dL (9-20); Calcium 8.2 mg/dL (8.4-10.2); Carbon Dioxide 35 mmol/L (22-30); Chloride 96 mmol/L (98-107); Estimated CRCL calculation 35 ml/min; Estimated Glomerular Filt Rate 39; Glucose 93 mg/dL (65-110); Potassium 4.6 mmol/L (3.4-5.0); Sodium 132 mmol/L (137-145)
[2023-01-05] MEDS: FUROSEMIDE INJ 40 MG/4 ML VIAL IV PUSH ×2 (08:23→21:05)
[2023-01-05] MEDS: POTASSIUM CHLORIDE 20 MEQ ER TABLET 40 MEQ PO ×2 (08:23→17:13)
[2023-01-05] MEDS: amLODIPine BESYLATE 5 MG TABLET 10 MG PO (08:23)
--- NOTE | 2023-01-05 10:48 | PM.IMPN ---
Progress Note: A&P Assessment and Plan (1) Mass of right axilla: Code(s): R22.31 - Localized swelling, mass and lump, right upper limb Status: Acute Assessment and Plan: I suspect the patient has probable recurrence of melanoma with metastatic disease given his history of prior melanoma excision from the right upper back reportedly performed last year. Will request general surgery consultation for lymph node resection for complete histologic evaluation verses excision of chest wall mass for pathologic diagnosis. Lymphoma is less likely. As the patient is not the best historian I will request records from [facility] regarding patient's past medical history. 01/03/2023 interval history: Patient is 82-year-old male presented with complaint right axilla mass for over a month now patient states is growing slowly, denies any pain or tenderness and has a full range of motion and right arm, just discomfort, patient had a fine needle biopsy of the lumbar, patient remains clinically stable, was seen by oncologist will follow-up on biopsy results and was seen by general surgery, patient may need excisional biopsy of the mass, also patient has shortness of breath, most likely congestive heart failure etiology uncertain is patient normally goes [facility] we have requested records, meanwhile, will gently diurese the patient and monitor, CT scan of the chest also showed concerning for pneumonia patient is being treated ceftriaxone and azithromycin, on 01/01 patient's son was present in the room gave updates. Will have a PT OT evaluate the patient. 01/05/2023: 82-year-old male presented with right axillary mass x1 month. No associated pain. Associated 6-10 lb weight loss. Coronary artery disease status post CABG CKD stage 3. Chest x-ray with cardiomegaly and mild pulmonary edema. Right axillary fullness nonspecific. CTA no PE moderate size left and small right pleural effusion. Patchy opacities in the lung consistent with atelectasis pneumonia. Multiple small tissue masses the right axilla and right supraclavicular posterior cervical had lymphadenopathy consistent with metastatic disease versus lymphoma. Right upper extremity venous duplex negative. Lower extremity duplex negative. Ultrasound guided biopsy right as a mass perform 01/02/2023. Pathology back well as metastatic melanoma. Cardiology consultation note reviewed. Oncology has been consulted history of melanoma resected upper back 2 years ago no adjuvant therapy. Discussed with Dr. Vasquez. Needs follow-up as an outpatient basis for further treatment evaluation (2) Supraclavicular lymphadenopathy: Code(s): R59.0 - Localized enlarged lymph nodes Status: Acute Assessment and Plan: See above (3) Elevated troponin: Code(s): R77.8 - Other specified abnormalities of plasma proteins Status: Acute Assessment and Plan: Patient is not having any active chest pain. I suspect this is likely due to chronic troponin leak given the patient's history of heart failure and prior CABG. The patient also has noted cardiac murmur on exam. The patient likely has chronic underlying chronic kidney disease but this cannot be confirmed if his renal failure is acute or chronic. Will trend troponins and monitor in IMU. Will check echocardiogram to further evaluate cardiac structure and function. (4) Acute hypokalemia: Code(s): E87.6 - Hypokalemia Status: Acute Assessment and Plan: Patient received a total of 80 mEq potassium supplements in the ER. Will repeat potassium level around midnight and in a.m.. Will monitor closely given the patient is also receiving active diuresis. Will trend magnesium and check a phosphorus as well. (5) Renal failure: Qualifiers: Renal failure chronicity: unspecified chronicity Qualified Code(s): N19 - Unspecified kidney failure Code(s): N19 - Unspecified k
--- NOTE | 2023-01-05 12:34 | PM.PNGS ---
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 Confirmation of metastatic disease to the lymph nodes by image guided core needle biopsy was recently done. He has not had imaging to evaluate for distant metastatic disease and I have ordered a CT scan of the brain as well as abdomen pelvis. If he has distant metastatic disease then surgical management of the right axilla, right supraclavicular and right posterior cervical metastatic disease would not be indicated. If no distant metastatic disease is seen then I would recommend referral to see Dr. Andriy Morris at [facility] for surgical oncology opinion as he is a expert in surgical management of primary and metastatic melanoma. Subjective Subjective Date/Time Seen: 01/05/23 12:34 Interval history: Patient seen earlier this week by Dr. Mcmahon for surgical consultation for bulky right axillary lymphadenopathy. Patient has a history of having a melanoma removed from his back about 2 years ago at [facility]. At that time he stated he did not get any further treatment and the resection more recent within last several weeks he has noticed right arm swelling and increasing masses in his right axilla. He recently underwent a in image guided core needle biopsy of the lymphadenopathy in the right axilla and this showed metastatic melanoma. He also has on CT of the chest evidence of right supraclavicular and right posterior cervical lymphadenopathy. No suspicious lung lesions were seen. He has not had a CT scan of the brain or abdomen pelvis to see if he has any distant metastasis. We have asked to see the patient again and common on whether surgical resection under local regional disease an option. Exam Neck: Other: Cannot obviously palpate significant right supraclavicular or posterior cervical lymphadenopathy. Resp: Other: Right axilla has large bulky firm lymphadenopathy. Multiple masses measure approximately 10cm in aggregate. He has mild swelling of the right upper extremity. Objective Data Vital Signs Vital Signs: Vital Signs - 24 hr 01/04/23 20:00 01/05/23 00:00 01/05/23 04:00 Temperature 36.2 C L 36.3 C L 36.3 C L Pulse Rate 68 74 83 Respiratory Rate 16 18 18 Blood Pressure 138/69 102/73 150/76 H Pulse Oximetry 96 96 97 01/04/23 20:00 01/05/23 00:00 01/05/23 04:00 Temperature Pulse Rate 57 L 59 L 50 L Respiratory Rate Blood Pressure Pulse Oximetry 01/05/23 08:00 01/05/23 11:42 Temperature 35.8 C L 35.8 C L Pulse Rate 67 61 Respiratory Rate 16 18 Blood Pressure 152/68 H 141/66 H Pulse Oximetry 97 96 Intake/Output Intake/Output: Intake & Output 01/02/23 01/03/23 01/04/23 01/05/23 23:59 23:59 23:59 23:59 Intake Total 1500 1466 410 Output Total 2100 1200 400 Balance -600 266 10 Meds/Results Medications: Active Medications Generic Name Dose Route Start Last Admin Trade Name Freq PRN Reason Stop Dose Admin Amlodipine Besylate 10 mg 01/01/23 09:00 01/05/23 08:23 Amlodipine Besylate 5 Mg Tablet PO 10 mg DAILY LIN Administration Furosemide 40 mg 12/31/22 21:00 01/05/23 08:23 Furosemide Inj 40 Mg/4 Ml Vial IV PUSH 40 mg Q12HR LIN Administration Hydralazine HCl 10 mg 01/03/23 16:15 01/03/23 20:57 Hydralazine Hcl 20 Mg/Ml Vial IV PUSH 10 mg Q8H PRN Administration Blood Pressure - High Azithromycin 250 mg/ Dextrose 250 mls @ 250 mls/hr 01/03/23 09:00 01/05/23 10:50 IVPB Infused Q24H LIN Infusion Ceftriaxone Sodium 1 gm in 50 mls @ 100 mls/hr 01/03/23 09:00 0
[2023-01-06] VITALS: BP 154/56; PULSE 55; RESP 16; TEMP 36; O2SAT 95
[2023-01-06 04:00] VITALS: BP 180/50; PULSE 45; PULSE 57; RESP 14; TEMP 36; O2SAT 97
[2023-01-06] MEDS: LEVOTHYROXINE SODIUM 100 MCG TABLET PO (05:35)
[2023-01-06] MEDS: LEVOTHYROXINE SODIUM 75 MCG TABLET PO (05:35)
[2023-01-06 05:57] LABS: Basophils Percent Auto 0.4 % (0.2-1.2); Eosinophils Absolute Auto 0.1 K/mm3 (0-0.3); Eosinophils Percent Auto 0.6 % (0-4.4); Hematocrit 47.9 % (42.0-52.0); Hemoglobin 15.5 g/dL (14.0-18.0); Lymphocytes Absolute Auto 1.12 K/mm3 (0.9-3.2); Lymphocytes Percent Auto 10.9 % (18.3-44.2); Mean Corpuscular HGB Conc 32.4 g/dl (32-36); Mean Corpuscular Hemoglobin 30.1 pg (26-34); Monocytes Absolute Auto 0.9 K/mm3 (0.1-0.6); Monocytes Percent Auto 8.4 % (2.6-8.5); Neutrophils Absolute Auto 8.1 K/mm3 (1.3-6.7); Neutrophils Percent Auto 78.7 % (45.5-73.1); Platelet Count Result 178 k/mm3 (150-375); Red Blood Count 5.15 M/mm3 (4.6-6.20); White Blood Count 10.3 K/mm3 (4.5-10.0)
[2023-01-06 06:06] LABS: Alanine Aminotransferase 13 U/L (6-50); Albumin Level 3.5 g/dL (3.5-5.1); Alkaline Phosphatase 74 U/L (38-126); Anion Gap 5 mmol/L (8-16); Aspartate Amino Transferase 23 U/L (17-59); Bilirubin,Total 0.6 mg/dL (0.2-1.3); Blood Urea Nitrogen 28 mg/dL (9-20); Calcium 8.4 mg/dL (8.4-10.2); Carbon Dioxide 32 mmol/L (22-30); Chloride 97 mmol/L (98-107); Estimated CRCL calculation 32 ml/min; Estimated Glomerular Filt Rate 34; Glucose 91 mg/dL (65-110); Magnesium 2.1 mg/dL (1.6-2.3); Sodium 134 mmol/L (137-145)
[2023-01-06 08:00] VITALS: BP 173/52; PULSE 65; RESP 16; TEMP 35.8; O2SAT 98
[2023-01-06 08:20] VITALS: PULSE 43
[2023-01-06] MEDS: AMOXICILLIN/CLAVULANATE K 875-125 MG TAB 1 TABLET PO (08:22)
[2023-01-06] MEDS: amLODIPine BESYLATE 5 MG TABLET 10 MG PO (08:22)
[2023-01-06] MEDS: AZITHROMYCIN 250 MG TABLET 500 MG PO (08:22)
[2023-01-06] MEDS: FUROSEMIDE INJ 40 MG/4 ML VIAL IV PUSH (08:23)
[2023-01-06] MEDS: POTASSIUM CHLORIDE 20 MEQ ER TABLET 40 MEQ PO (08:23)
--- NOTE | 2023-01-06 09:58 | PC.NURSE ---
Pt very angry and combative. Pt refusing to take meds because you don't care enough to give me surgery today so I don't care enough to take your meds! A short time later, pt ripped his IV out of his L upper arm bleeding all over his torso, arm, and the bed. Pt stated he did it because you lied to me. You misled me. You kept me here and are not doing surgery. I'm leaving. I'll show you!
--- NOTE | 2023-01-06 10:22 | PCOTNOTE ---
Attempted to see Patient for OT treatment session this A.M. Patient is very upset at this time. Patient had just took his own IV out and having increased argumentative discussions with the nursing staff and therapist. Therapist educated on the importance of services and he verbalized, cancel all orders from the doctors, I am done, there is no reason for all this .
--- NOTE | 2023-01-06 11:09 | PC.NURSE ---
Pt tore his telemetry unit and leads off and threw them on the table stating he was not wearing our monitors. Pt made several other angry outbursts claiming he was lied to and we have engaged in bait and switch tactics with him.
--- NOTE | 2023-01-06 11:10 | PM.PNGS ---
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 The only obvious disease seen on scan to the local regional lymph nodes in the right axilla, the right supraclavicular, right posterior cervical lymph nodes. Since he does not have obvious evidence of distant metastatic disease I offered outpatient referral to see Dr. Andriy Morris at [facility] who is a surgical oncologist specializing in cancer resection but in particular complex melanoma surgery. He could possibly be a candidate for surgical resection of his local regional metastatic disease. At the present time he is refusing further surgical evaluation. Explained to him that he would need to be seen by a specialist in [place] for any surgery and he understands. I will be happy to make a referral to Dr. Morris for a surgical opinion should the patient change his mind but otherwise surgery will sign off. Subjective Subjective Date/Time Seen: 01/06/23 11:10 Interval history: Patient without acute changes. Clinically stable. CT scan of the head showed no metastatic lesions in the brain. CT scan of the abdomen pelvis showed no evidence of by sec disease to the abdomen. Previous CT scan of the chest showed only bulky metastatic disease to the right axilla and the right supra clavicular and right posterior cervical lymph nodes. Exam Const: General: comfortable and no acute distress Resp: Other: Unchanged large bulky fixed masses in the right axilla known to be metastatic melanoma by recent biopsy. Objective Data Vital Signs Vital Signs: Vital Signs - 24 hr 01/05/23 11:42 01/05/23 15:45 01/05/23 12:00 Temperature 35.8 C L 35.9 C L Pulse Rate 61 56 L 60 Respiratory Rate 18 18 Blood Pressure 141/66 H 151/78 H Pulse Oximetry 96 98 Oxygen Delivery 01/05/23 16:00 01/05/23 20:00 01/06/23 00:00 Temperature 35.8 C L 36.0 C L Pulse Rate 62 65 55 L Respiratory Rate 14 16 Blood Pressure 157/54 H 154/56 H Pulse Oximetry 98 95 Oxygen Delivery 01/05/23 20:00 01/06/23 04:00 01/06/23 04:00 Temperature 36.0 C L Pulse Rate 51 L 45 L 57 L Respiratory Rate 14 Blood Pressure 180/50 H Pulse Oximetry 97 Oxygen Delivery 01/06/23 08:00 01/06/23 08:20 01/06/23 08:20 Temperature 35.8 C L Pulse Rate 65 43 L Respiratory Rate 16 Blood Pressure 173/52 H Pulse Oximetry 98 Oxygen Delivery Room Air Intake/Output Intake/Output: Intake & Output 01/03/23 01/04/23 01/05/23 01/06/23 23:59 23:59 23:59 23:59 Intake Total 1466 1850 600 Output Total 1200 1400 950 Balance 266 450 -350 Meds/Results Medications: Active Medications Generic Name Dose Route Start Last Admin Trade Name Freq PRN Reason Stop Dose Admin Amlodipine Besylate 10 mg 01/01/23 09:00 01/06/23 08:22 Amlodipine Besylate 5 Mg Tablet PO 10 mg DAILY LIN Administration Amoxicillin/Clavulanate Potassium 1 tablet 01/06/23 09:00 01/06/23 08:22 Amoxicillin/Clavulanate K 875-125 Mg Tab PO 01/07/23 21:01 1 tablet Q12HR LIN Administration Azithromycin 500 mg 01/06/23 09:00 01/06/23 08:22 Azithromycin 250 Mg Tablet PO 01/07/23 09:01 500 mg DAILY LIN Administration Furosemide 40 mg 12/31/22 21:00 01/06/23 08:23 Furosemide Inj 40 Mg/4 Ml Vial IV PUSH 40 mg Q12HR LIN Administration Hydralazine HCl 10 mg 01/03/23 16:15 01/03/23 20:57 Hydralazine Hcl 20 Mg/Ml Vial IV PUSH 10 mg Q8H PRN Administration Blood Pressure - High Levothyroxine Sodium 75 mcg 01/01/23 06:30 01/06/23 05:35 Levothyroxine Sodium 75 Mcg Tablet PO 75 mcg DAILY@0630 LIN Administration Levothyroxine Sodium 100 mcg 01/01/23 06:30
--- NOTE | 2023-01-06 11:37 | PM.DS ---
DS: Admitting Diagnosis Discharge Date 01/06/2023 Admitting Diagnosis right arm mass DS: Discharge Diagnosis Discharge Diagnosis (1) Mass of right axilla: Code(s): R22.31 - Localized swelling, mass and lump, right upper limb Status: Acute (2) Supraclavicular lymphadenopathy: Code(s): R59.0 - Localized enlarged lymph nodes Status: Acute (3) Elevated troponin: Code(s): R77.8 - Other specified abnormalities of plasma proteins Status: Acute (4) Acute hypokalemia: Code(s): E87.6 - Hypokalemia Status: Acute (5) Renal failure: Qualifiers: Renal failure chronicity: unspecified chronicity Qualified Code(s): N19 - Unspecified kidney failure Code(s): N19 - Unspecified kidney failure Status: Acute (6) Pleural effusion: Code(s): J90 - Pleural effusion, not elsewhere classified Status: Acute (7) CHF (congestive heart failure): Qualifiers: Heart failure type: unspecified Heart failure chronicity: acute Qualified Code(s): I50.9 - Heart failure, unspecified Code(s): I50.9 - Heart failure, unspecified Status: Acute (8) Hypothyroidism: Qualifiers: Hypothyroidism type: acquired Qualified Code(s): E03.9 - Hypothyroidism, unspecified Code(s): E03.9 - Hypothyroidism, unspecified Status: Acute (9) Edema of right upper extremity: Code(s): R60.0 - Localized edema Status: Acute (10) Bilateral lower extremity edema: Code(s): R60.0 - Localized edema Status: Acute (11) Bradycardia: Code(s): R00.1 - Bradycardia, unspecified Status: Acute DS: Summary Hospital Course Hospital Course: 82-year-old male presented with right axillary mass x1 month.? No associated pain.? Associated 6-10 lb weight loss.? Coronary artery disease status post CABG CKD stage 3.? Chest x-ray with cardiomegaly and mild pulmonary edema.? Right axillary fullness nonspecific.? CTA no PE moderate size left and small right pleural effusion.? Patchy opacities in the lung consistent with atelectasis pneumonia.? Multiple small tissue masses the right axilla and right supraclavicular posterior cervical had lymphadenopathy consistent with metastatic disease versus lymphoma.? Right upper extremity venous duplex negative.? Lower extremity duplex negative.? Ultrasound guided biopsy right off the mass was performed on 01/02/2023.? Pathology back well as metastatic melanoma.? Cardiology consultation note reviewed.? Oncology has been consulted history of melanoma resected upper back 2 years ago no adjuvant therapy.? Discussed with Dr. Vasquez.? Needs follow-up as an outpatient basis for further treatment evaluation. CT abdomen and CT head was done which did not show any distant metastatic disease. Oncology planning to do PET scan as an outpatient basis. General surgery suggested seen oncology surgeon at [facility] and provided the information to the patient as well son. He was also treated for along. Is normal swelling improved diet switched to Lasix at discharge. Renal function was monitored closely with diuresis. Patient had intermittent bradycardia which was resolved with treatment of hypokalemia. TSH was also high suggestive of not optimal hypothyroidism treatment. He was treated for pneumonia that was evident on the CT scan with antibiotics. He did not require any oxygen and improved clinically. He will finish the antibiotic course as an outpatient basis. Time Spent with Patient Time attestation: Total time spent providing and/or coordinating discharge services:45 mins Exam Narrative: Elderly frail, not in acute distress Patient is comfortable, NAD right axillary lump noted right upper extremity edema noted with bruising on medial side upper arm HEENT: eyes are clear and none icteric LUNGS: Normal respiratory effort ABD: Not distended Lower extremities: no edema SKIN: nonjaundiced Neuro:
[2023-01-06 12:01] VITALS: BP 167/92; PULSE 59; RESP 17; TEMP 35.8; O2SAT 97
--- NOTE | 2023-01-06 13:20 | PCOTNOTE ---
Attempted to see Patient for P.M. treatment session. Patient refused to participate and stated, I'm leaving, I'm done.
== END 2023-01-06 14:34 | disposition home health service (06) | DRG 824 ==
LOC: ANHED 17:57 → ANHIMU 21:32 → ANH3MEDSUR 01-02 17:30
PROVIDERS: Emergency Medicine; Family Medicine; Admitting Provider Internal Medicine; Emergency Provider Physician Assistant; PCP Internal Medicine; Visit Provider Internal Medicine
DX: C77.3 Secondary and unspecified malignant neoplasm of axilla and upper limb lymph nodes (principal); I13.0 Hypertensive heart and chronic kidney disease with heart failure and stage 1 through stage 4 chronic kidney disease, or unspecified chronic kidney disease; N17.9 Acute kidney failure, unspecified; J90 Pleural effusion, not elsewhere classified; C77.0 Secondary and unspecified malignant neoplasm of lymph nodes of head, face and neck; I50.9 Heart failure, unspecified; N18.30 Chronic kidney disease, stage 3 unspecified; R77.8 Other specified abnormalities of plasma proteins; E87.6 Hypokalemia; E03.9 Hypothyroidism, unspecified; I44.7 Left bundle-branch block, unspecified; I25.10 Atherosclerotic heart disease of native coronary artery without angina pectoris; Z95.1 Presence of aortocoronary bypass graft; Z85.820 Personal history of malignant melanoma of skin; Z87.891 Personal history of nicotine dependence
CPT/HCPCS: 36415; 38505; 70450; 71046; 71275; 73590; 74177; 76942; 80048; 80053; 81001; 82570; 83690; 83735; 83880; 84100; 84132; 84300; 84439; 84443; 84480; 84484; 85025; 85027; 85380; 85610; 85730; 88305; 88342; 93005; 93970; 93971; 96365; 96366; 96375; 96376; 97110; 97116; 97161; 97165; 97530; 97535; 99285; A9270; G0378; J0360; J0456; J0696; J1940; J3475; J3480; J7040; J7060; Q9967

== ENCOUNTER 2023-01-26 11:16 | Outpatient (CLI) | payer MEDICARE, SELFPAY ==
--- NOTE | ~2023-01-26 | PE_ITS ---
EXAMINATION: PET skull to mid thigh DATE: 01/26/2023 14:40 INDICATION: Lung nodule, right axillary mass, metastatic melanoma TECHNIQUE: Blood glucose level was 112 mg/dL. 10.286 mCi of 18-fluorodeoxyglucose (18-FDG) was admini stered i.v. Low dose computed tomography (CT) images were acquired from the base of the brain to the proximal thighs for attenuation correction and anatomic localization. Positron emission tomography (P ET) images were acquired in the same distribution beginning 62 minutes after injection. Images includ ing fused PET/CT images were reconstructed in axial, coronal, and sagittal planes. Automated exposure control technique was employed. The dose-length product was 545.11mGy-cm. COMPARISON: CT abdomen and pelvis dated 01/05/[address] chest dated 12/31/2022 FINDINGS: Head/neck: There is symmetric increased activity in the oral cavity, palatine tonsils, parotid glands, submandi bular glands, laryngeal muscles and ocular muscles without CT correlate, likely physiologic. 12 x 6 m m subcutaneous nodule posterior to the left ear with mild FDG uptake with maximal SUV of 2.3. There a re 3 enlarged and prominently FDG avid lymph nodes at the right side of the neck, the smallest in the posterior cervical triangle measuring 1.5 cm with maximal SUV of 9.2 and with 2 in the right supra c lavicular region the larger measuring 3.6 x 1.8 cm with maximal SUV of 18 consistent with metastatic melanoma. Chest: Bulky and markedly FDG avid right axillary and subpectoral lymphadenopathy with conglomeration of rig ht axillary lymph nodes measuring 10.9 x 6.5 cm with maximal SUV of 24.7. There is also similarly FDG avid nodular infiltration of the right deltoid, supraspinatus and infraspinatus musculature with max imal SUV of 27.3. Smaller 1.5 cm FDG avid nodule with maximal SUV of 14.7 in the right rhomboid minor loss along the medial margin of the right scapula. 8 mm FDG avid nodule with maximal SUV of 24.2 in the intercostal muscles deep to the nipple between the anterior left fourth and fifth ribs. There are 3 foci of relatively mild uptake associated with healing subacute appearing fractures of the posteri or left 8th-12th left ribs. Additional small focus of upper mild uptake with maximal SUV of 3.3 locat ed along the posterior right eighth rib without evident fracture which is equivocal for occult fractu re or occult rib or soft tissue metastasis. There are small bilateral posterior layering pleural effusions with dependent compressive atelectasis in the bilateral lower lobes. There are few scattered small bilateral calcified pulmonary nodules al ravi with calcified right hilar and mediastinal lymph nodes consistent with old granulomatous disease. No suspicious pulmonary nodules or FDG avid lung lesions identified. Cardiomegaly. Atherosclerotic c oronary artery calcification. Prominent aortic valve calcific lesion. Thoracic aorta is normal in brittny iber. No FDG avid mediastinal or hilar lymphadenopathy. Abdomen/pelvis/proximal thighs: Physiologic renal accumulation and excretion of FDG activity in the kidneys, bladder and along portio ns of ureters. 4 mm nonobstructing stone at the lower pole of the right kidney. Normal degree and het erogenous pattern of increased uptake throughout the liver without radiologic correlate or dominant F DG avid lesion. The gallbladder, pancreas, spleen and bilateral adrenal glands are normal. Mild uptak e scattered throughout the bowels without radiologic correlate, also likely physiologic. Small fat-co ntaining right inguinal hernia. 1.5 cm FDG avid nodule versus lymph node in the mesentery in the uppe r is pelvis with maximal SUV of 8.2. No other abnormal foci of increased FDG uptake or pathologically enlarged lymphadenopathy in the abdomen, pelvis or proximal thighs. Atherosclerotic calcification al ravi the abdominal aorta and several its branch vessels with 3.3 cm fusiform ectasia of the infrarena
[2023-01-26 12:15] LABS: Glucose Point of Care 112 mg/dl (65-105)
== END 2023-01-26 11:17 | disposition home or self-care (01) ==
PROVIDERS: PCP Internal Medicine; Visit Provider Internal Medicine Hematology & Oncology
DX: R91.1 Solitary pulmonary nodule (principal); N20.0 Calculus of kidney; J90 Pleural effusion, not elsewhere classified; R59.1 Generalized enlarged lymph nodes; C79.89 Secondary malignant neoplasm of other specified sites
CPT/HCPCS: 78815; A9552